=== PATIENT | male | born 1970 | race Caucasian/White ===

== ENCOUNTER 2022-10-17 17:47 | Inpatient (IN) | payer BC, SELFPAY ==
[2022-10-17] VITALS (32 sets, daily range): BP systolic 113–166; BP diastolic 70–144; PULSE 91–125; RESP 15–33; TEMP 36.2; O2SAT 87–99
--- NOTE | 2022-10-17 17:45 | RT.EKG_ITS ---
APPROVED REPORT Exam: Resting ECG Reason for Exam: seizure Patient Location: E HR:103 bpm ECG Measurements Heart Rate 103 AXIS [place] 182 P 66 QRSd 86 QRS 28 QT 394 T 72 QTc 516 Conclusion Sinus tachycardia...rate> 99 Prolonged QT interval...QTc >500mS No ST segment or T wave abnormalities to suggest occlusive [place]
--- NOTE | 2022-10-17 18:00 | RT.EKG_ITS ---
APPROVED REPORT Exam: Resting ECG Reason for Exam: seizure Patient Location: E HR:110 bpm ECG Measurements Heart Rate 110 AXIS [place] 117 P 11 QRSd 88 QRS 31 QT 437 T -88 QTc 592 Conclusion Sinus tachycardia...rate> [address] segment or T wave abnormalities to suggest occlusive [place] Prolonged QT interval...QTc >500mS
--- NOTE | 2022-10-17 18:00 | DI.CT_ITS ---
Exam(s) CT HEAD WO EXAM: CT HEAD WO CLINICAL HISTORY: Seizure, headache. TECHNIQUE: Imaging Protocol: Axial computed tomography images with coronal and sagittal reformatted images were created and reviewed COMPARISON: No exams were available for comparison FINDINGS: Exam limited by motion. Ventricles and Extra axial spaces: Normal in size and morphology for the patient's age. Hemorrhage: None. Cerebral parenchyma: No evidence of acute infarct or mass. Midline shift: None. Brainstem/Cerebellum: Normal. Calvarium: Normal. Visualized Paranasal sinuses/Mastoids: mucosal thickening right maxillary sinus. Soft Tissues: Unremarkable. IMPRESSION: Exam limited by motion. No acute intracranial process. RADIATION DOSE DELIVERED: 760.35mGy.cm Total DLP DATA REPOSITORY: All CT scans at this facility are submitted to the National Radiology Data Registry (NRDR) Dose Index Registry (DIR) with the [employer] ([employer]). RADIATION OPTIMIZATION: All CT scans at this facility use at least one of these dose optimization te chniques: automated exposure control; mA and/or kV adjustment per patient size (includes targeted exa ms where dose is matched to clinical indication); or iterative reconstruction.
[2022-10-17] MEDS: Normal Saline 1,000 ML 1000 ML IV ×2 (18:14→21:36)
[2022-10-17] MEDS: LORazepam 2 MG/ML VIAL 1 MG IVP (18:14)
[2022-10-17 18:28] LABS: Absolute Eosinophil Count 0.01 10^3/uL (0.0-0.7); Absolute Monocyte Count 1.65 10^3/uL (0.1-0.8); Basophils % 0.4; Eosinophils % 0.1; HCT 51.5 % (40.0-50.0); HGB 18.1 g/dL (13.5-17.5); Immature Grans % 0.7; Lymphocytes % 6.7; MCH 32.6 pg (27.0-33.0); MCHC 35.1 % (32.0-36.0); MCV 93 fL (80-95); MPV 11.4 fL (8.0-11.0); Monocytes % 12.3; Neutrophils % 79.8; Platelet Count 176 10^3/uL (130-400); RBC 5.56 10^6/uL (4.36-5.78); RDW 11.1 % (11.8-14.1); WBC 13.43 10^3/uL (4.4-10.8)
[2022-10-17] MEDS: diazePAM 10 MG/2 ML SYR 5 MG IVP ×2 (18:31→22:00)
[2022-10-17 18:43] LABS: Absolute Basophil Count 0.05 10^3/uL (0.0-0.2); Absolute Neutrophil Count 10.72 10^3/uL (1.2-6.7)
[2022-10-17 18:45] LABS: Acetaminophen < 2 ug/mL (10-30); Salicylate < 2.8 mg/dL (<2.8)
[2022-10-17 18:48] LABS: ALT 70 U/L (16-63); AST 91 U/L (15-37); Albumin 4.6 g/dL (3.4-5.0); Alkaline Phosphatase 86 U/L (46-116); Anion Gap 18.3 mmol/L (3-11); BUN 44 mg/dL (7-18); Bilirubin, Total 2.6 mg/dL (0.2-1.0); CO2 33.7 mmol/L (21.0-32.0); CREATININE 2.9 mg/dL (0.70-1.30); Chloride 80 mmol/L (98-107); Estimated GFR 25.71 (mL/min/1.73m2); Glucose 144 mg/dL (74-106); Lipase 33 U/L (16-77); Magnesium 1.4 mg/dL (1.8-2.4); Sodium 132 mmol/L (136-145); Total Protein 9.3 g/dL (6.4-8.2)
[2022-10-17 18:49] LABS: ETHANOL BLOOD < 3.0 mg/dL (<10)
[2022-10-17 18:50] LABS: Calcium 15.5 mg/dL (8.5-10.1)
[2022-10-17 18:50] LABS: Ammonia 39 umol/L (11-32)
[2022-10-17 18:51] LABS: Potassium 2.3 mmol/L (3.5-5.1)
[2022-10-17] MEDS: Potassium Chloride 20 MEQ TABCR 40 MEQ PO (19:03)
[2022-10-17] MEDS: Magnesium Oxide 400 MG TAB PO (19:03)
[2022-10-17] MEDS: POTASSIUM CHLORIDE 20 MEQ/100 ML BAG 50 MEQ IVPB (19:03)
[2022-10-17 19:05] LABS: Diff Comment Diff Reviewed
[2022-10-17 19:06] LABS: RBC Morphology Normal
--- NOTE | 2022-10-17 20:28 | DI.VRAD_ITS ---
PROCEDURE INFORMATION: Exam: CT Head Without Contrast Exam date and time: 10/17/2022 8:08 PM Age: 51 years old Clinical indication: Other: Seizure, headache TECHNIQUE: Imaging protocol: Computed tomography of the head without contrast. Radiation optimization: All CT scans at this facility use at least one of these dose optimization techniques: automated exposure control; mA and/or kV adjustment per patient size (includes targeted exams where dose is matched to clinical indication); or iterative reconstruction. COMPARISON: No relevant prior studies available. FINDINGS: Brain: Cortical volume loss noted. No hemorrhage. Unremarkable white matter. No mass effect. Cerebral ventricles: No ventriculomegaly. Paranasal sinuses: Mild mucoperiosteal thickening right maxillary sinus. Mastoid air cells: Visualized mastoid air cells are well aerated. Bones/joints: Unremarkable. No acute fracture. Soft tissues: Unremarkable. Other findings: Motion slightly limits the exam. IMPRESSION: Slightly limited due to motion. No definite evidence for acute intracranial abnormality. Dictated and Authenticated by: Megan Amato MD. Ordering:SIAI Downs MD
[2022-10-17 20:37] LABS: *AMPHETAMINES SCREEN URINE Negative (Negative); *BARBITURATES SCREEN URINE Negative (Negative); *BENZODIAZEPINES SCREEN URINE Negative (Negative); Cannabinoids THC Negative (Negative); Cocaine Screen,Urine Negative (Negative); METHADONE URINE SCREEN Negative (Negative); OPIATES URINE SCREEN Negative (Negative)
[2022-10-17 20:38] LABS: Tricyclic Antidepressants Negative (Negative)
--- NOTE | 2022-10-17 20:57 | W.ED.GENAD ---
Discharge Plan Disposition Patient Disposition: Admit to [facility] Discharge Details Clinical Impression: Alcohol withdrawal seizure, Acute hypokalemia, Hypercalcemia, Hypomagnesemia, Acute dehydration, VITALIY (acute kidney injury) Admit Date/Time: 10/17/22 23:28 Admit Provider: Raffy Talavera Attending Provider: Raffy Talavera Primary Care Provider: Karen,Local ED Provider: Himanshu Davies Discharge Data Discharge Date/Time-TO BE ENTERED AT DEPARTURE: 10/18/22 01:12 Medical Decision Making Patient presenting to the emergency department for generalized not feeling well, lightheadedness, headache and vomiting since Wednesday. While presenting to the emergency department patient had what appeared to be seizure-like activity. Further discussion revealed that patient is a heavy drinker but given symptoms has not been drinking normal amounts since Wednesday and when attempting to drink this morning he vomited up the alcohol. Patient states he is not on any medication, has been using some Tums for indigestion and has no other past medical history. Patient does not remember having withdrawal seizures from alcohol before but significant other states that she does believe he did have this in the past. Of note by the time I had seen the patient verbal orders were given for 1 mg of Ativan to be given and patient was no longer seizing. Physical exam does show bilateral significant tremors of the upper extremities, patient appears slightly anxious. Noted tachycardia otherwise nondiagnostic exam with no focal neurological findings beyond tremors. We will plan on checking labs CT imaging of head and will give the fluids, will monitor with CIWA, and will aggressively continue with benzos. Please see physician interpretation for full interpretation of EKG but upon my review patient is in sinus tachycardia, no acute ischemic findings to suggest STEMI but of significant note was patient has prolonged QTc of 592. Review of patient's labs show elevated WBC, hemoglobin of 18, neutrophils and monocytes high with low lymphocytes. CBC shows significant and multiple electrolyte abnormalities including hypokalemia, hyponatremia, significant anion gap of 18, elevated BUN and creatinine with a GFR of 25, hypercalcemia with 15.5, hyper magnesium elevated AST ALT. Patient does have ammonia of 39 and lipase is within normal range of 33. Urinalysis showed significant concentration did show positive for nitrites but only 0-2 WBCs and rare bacteria so reflexive culture was ordered but I suspect some of these findings could be more from dehydration. May be beneficial to repeat urinalysis after patient is more appropriately hydrated. Alcohol was nondetected and negative UDS otherwise. CT imaging of head did not reveal any acute findings. Patient was given another liter of fluids, p.o. and IV potassium, p.o. magnesium, a total of 10 mg of diazepam and discussed with patient about admission which she was agreeable to. Hospitalist was contacted and agreed to have patient admitted. Patient remained in stable condition and benzos were able to control symptoms of withdrawal. This documentation was generated using [employer] dictation system, please disregard any oddities of phrase or misspellings. Imaging Data Radiologic Study: Imaging: CT Scan Radiologist's impression: Exam(s) PROCEDURE INFORMATION: Exam: CT Head Without Contrast Exam date and time: 10/17/2022 8:08 PM Age: 51 years old Clinical indication: Other: Seizure, headache TECHNIQUE: Imaging protocol: Computed tomography of the head without contrast. Radiation optimization: All CT scans at this facility use at least one of these dose optimization techniques: automated exposure control; mA and/or kV adjustment per patient size (includes targeted exams where dose is matched to clinical indication); or iterative reconstruction. COMPARISON: No relevant prior studies available. FINDINGS: Brain: Cortical volume loss noted. No hemorrhage. Unremarkable white matter. No mass effect. Cerebral ventricles: No ventriculomegaly. Paranasal sinuses: Mild mucoperiosteal thickening right maxillary sinus. Mastoid air cells: Visualized mastoid air cells are well aerated. Bones/joints: Unremarkable. No acute fracture. Soft tissues: Unremarkable. Other findings: Motion slightly limits the exam. IMPRESSION: Slightly limited due to motion. No definite evidence for acute intracranial abnormality. Lab Data Lab results reviewed: Yes I reviewed the patient's lab results. HPI General Mode of arrival: wheelchair. Date/Time Provider Initiated Documentation: 10/17/22 17:52. Limitations to Documentation: no limitations. Information obtained by: patient, family and RN notes reviewed. History of Present Illness 51 year old M presents to the emergency department with the chief complaint of Dizziness, headache, vomiting, described as moderate, Patient started experiencing this day(s) (4) and it has been constant. No relieving factors improve symptom(s), No exacerbating factors reported . Patient did receive the following treatments prior to arrival, none Related Data Home Medications Medication Instructions Recorded Confirmed lorazepam 1 mg tablet 1 mg PO TID PRN #20 tabs 10/19/22 ondansetron 4 mg disintegrating 4 mg PO Q6H PRN #20 tabs 10/19/22 tablet Previous Rx's Medication Instructions Recorded lorazepam 1 mg tablet 1 mg PO TID PRN #20 tabs 10/19/22 ondansetron 4 mg disintegrating 4 mg PO Q6H PRN #20 tabs 10/19/22 tablet General Stated Complaint: Seizure ADA: 2 Review of Systems Constitutional Constitutional: Denies chills, Denies fever(s), Reports headache(s) and Reports malaise Eyes Eyes: Denies change in vision ENT Ears, Nose, Mouth, and Throat: Reports headache(s) Cardiovascular Cardiovascular: Denies chest pain and Denies dyspnea Respiratory Respiratory: Denies cough and Denies dyspnea Gastrointestinal Gastrointestinal: Denies abdominal pain, Denies diarrhea, Reports nausea and Reports vomiting Genitourinary Genitourinary: Denies oliguria and Denies difficulty urinating Musculoskeletal Musculoskeletal: Denies muscle cramps, Reports muscle weakness, Denies numbness and Denies tingling Integumentary/Breasts Skin/Breast: Denies rash Neurologic Neurologic: Reports headache(s), Denies numbness, Reports convulsions and Denies tingling PFSH All Active Problems (Updated 10/18/22 @ 18:26 by Marjan Driver NP) Prolonged QT interval (Acute) Alcohol withdrawal (Acute) Alcohol withdrawal seizure (Acute) Acute hypokalemia (Acute) Acute dehydration (Acute) VITALIY (acute kidney injury) (Acute) Hypertension (Chronic) Social History Smoking/Tobacco Use Status: Never Smoking risk assessment performed?: Yes Alcohol Intake: current Alcohol Intake frequency: 3 or more drinks per day Drug use: Never Substance use type: does not use Housing: house Exam Const General: cooperative Orientation: alert, awake and oriented x3 HENMT Head: normal to inspection Ears: hearing grossly normal bilaterally Mouth: oral mucosae normal and moist mucous membranes Throat: posterior oropharynx normal Eyes Visual Waggoner: normal visual waggoner by confrontation Alignment and Position: alignment normal Periorbital: periorbital findings normal Eyelids: eyelids normal Sclera: sclerae normal Cornea: corneas normal Pupils: PERRL EOM: EOM intact bilaterally Neck Neck: normal visual inspection, full ROM and no meningeal signs Resp Effort & Inspection: normal respiratory effort and able to speak in complete sentences Auscultation: clear to auscultation bilaterally Cardio Rate: regular rate Rhythm: regular rhythm Heart Sounds: S1 normal and S2 normal GI Palpation: soft, not firm, no guarding, no masses, no pulsatile masses, not rigid and nontender Auscultation: normal bowel sounds Neuro General: patient alert, patient awake, patient oriented x3, gait normal and moves all extremities Cognition: normal cognition Speech: speech normal Motor: muscle tone normal throughout, strength 5/5 throughout, no pronator drift, no movement abnormalities noted and tremor bilateral upper extremity resting tremor Sensory Exam: no sensory deficits noted Course Vital Signs Vital signs: Vital Signs Temperature 36.2 C L 10/17/22 17:50 Pulse 115 H 10/17/22 17:50 Respiratory Rate 20 10/17/22 17:50 Blood Pressure 150/90 H 10/17/22 17:50 Pulse Oximetry 99 10/17/22 17:50 Temperature 36.2 C L 10/17/22 17:50 Pulse 109 H 10/17/22 20:00 Pulse 109 H 10/17/22 20:00 Respiratory Rate 22 10/17/22 20:00 Respiratory Effort Normal 10/17/22 18:05 Respiratory Depth Normal 10/17/22 18:05 Respiratory Pattern Normal 10/17/22 18:06 Blood Pressure 113/70 10/17/22 20:00 Blood Pressure Mean 81 10/17/22 20:00 Blood Pressure Position Sitting 10/17/22 17:50 Pulse Oximetry 94 10/17/22 19:50 Oxygen Delivery Method Room Air 10/17/22 17:50 Oxygen Flow Rate 0 10/17/22 17:50 Lab/Test Results Lab/Test Results: Laboratory Tests Range/Units 10/17/22 10/17/22 10/17/22 17:55 17:55 17:55 WBC (4.4-10.8) 10^3/uL 13.43 H RBC (4.36-5.78) 10^6/uL 5.56 Hgb (13.5-17.5) g/dL 18.1 H Hct (40.0-50.0) % 51.5 H MCV (80-95) fL 93 MCH (27.0-33.0) pg 32.6 MCHC (32.0-36.0) % 35.1 RDW (11.8-14.1) % 11.1 L Plt Count (130-400) 10^3/uL 176 MPV (8.0-11.0) fL 11.4 H Immature Gran % 0.7 Neutrophils % 79.8 Lymphocytes % 6.7 Monocytes % 12.3 Eosinophils % 0.1 Basophils % 0.4 Nucleated RBC % (0.0-0.3) % 0.0 Absolute Neutrophils (1.2-6.7) 10^3/uL 10.72 H Absolute Lymphocytes (1.2-3.4) 10^3/uL 0.90 L Absolute Monocytes (0.1-0.8) 10^3/uL 1.65 H Absolute Eosinophils (0.0-0.7) 10^3/uL 0.01 Absolute Basophils (0.0-0.2) 10^3/uL 0.05 RBC Morphology Normal Sodium (136-145) mmol/L 132 L Potassium (3.5-5.1) mmol/L 2.3 L* Chloride (98-107) mmol/L 80 L Carbon Dioxide (21.0-32.0) mmol/L 33.7 H Anion Gap (3-11) mmol/L 18.3 H BUN (7-18) mg/dL 44 H Creatinine (0.70-1.30) mg/dL 2.9 H Est GFR (CKD-EPI 2020) (mL/min/1.73m2) 25.71 Glucose (74-106) mg/dL 144 H Calcium (8.5-10.1) mg/dL 15.5 H* Magnesium (1.8-2.4) mg/dL 1.4 L Total Bilirubin (0.2-1.0) mg/dL 2.6 H AST (15-37) U/L 91 H ALT (16-63) U/L 70 H Alkaline Phosphatase (46-116) U/L 86 Ammonia (11-32) umol/L Total Protein (6.4-8.2) g/dL 9.3 H Albumin (3.4-5.0) g/dL 4.6 Lipase (16-77) U/L 33 Salicylates (<2.8) mg/dL < 2.8 Urine Opiates Screen (Negative) Urine Methadone Screen (Negative) Acetaminophen (10-30) ug/mL < 2 Ur Barbiturates Screen (Negative) Ur Tricyclics Screen (Negative) Ur Amphetamines Screen (Negative) U Benzodiazepines Scrn (Negative) Urine Cocaine Screen (Negative) Ur THC Screen (Negative) Ethyl Alcohol (<10) mg/dL < 3.0 Range/Units 10/17/22 10/17/22 18:20 19:57 WBC (4.4-10.8) 10^3/uL RBC (4.36-5.78) 10^6/uL Hgb (13.5-17.5) g/dL Hct (40.0-50.0) % MCV (80-95) fL MCH (27.0-33.0) pg MCHC (32.0-36.0) % RDW (11.8-14.1) % Plt Count (130-400) 10^3/uL MPV (8.0-11.0) fL Immature Gran % Neutrophils % Lymphocytes % Monocytes % Eosinophils % Basophils % Nucleated RBC % (0.0-0.3) % Absolute Neutrophils (1.2-6.7) 10^3/uL Absolute Lymphocytes (1.2-3.4) 10^3/uL Absolute Monocytes (0.1-0.8) 10^3/uL Absolute Eosinophils (0.0-0.7) 10^3/uL Absolute Basophils (0.0-0.2) 10^3/uL RBC Morphology Sodium (136-145) mmol/L Potassium (3.5-5.1) mmol/L Chloride (98-107) mmol/L Carbon Dioxide (21.0-32.0) mmol/L Anion Gap (3-11) mmol/L BUN (7-18) mg/dL Creatinine (0.70-1.30) mg/dL Est GFR (CKD-EPI 2020) (mL/min/1.73m2) Glucose (74-106) mg/dL Calcium (8.5-10.1) mg/dL Magnesium (1.8-2.4) mg/dL Total Bilirubin (0.2-1.0) mg/dL AST (15-37) U/L ALT (16-63) U/L Alkaline Phosphatase (46-116) U/L Ammonia (11-32) umol/L 39 H Total Protein (6.4-8.2) g/dL Albumin (3.4-5.0) g/dL Lipase (16-77) U/L Salicylates (<2.8) mg/dL Urine Opiates Screen (Negative) Negative Urine Methadone Screen (Negative) Negative Acetaminophen (10-30) ug/mL Ur Barbiturates Screen (Negative) Negative Ur Tricyclics Screen (Negative) Negative Ur Amphetamines Screen (Negative) Negative U Benzodiazepines Scrn (Negative) Negative Urine Cocaine Screen (Negative) Negative Ur THC Screen (Negative) Negative Ethyl Alcohol (<10) mg/dL PAWSS Have you Been Recently Intoxicated or Drunk Within the Last 30 days?: Yes Have you Ever Experienced Previous Episodes of Alcohol Withdrawal?: Yes Have you ever Experienced Withdrawal Seizures?: Unable to Obtain Have you ever Experienced Delirium Tremens(DT)s?: Yes Have you ever undergone Alcohol Rehabilitation Treatment (i.e, inpt ot outpatient treatment programs)?: No Have you ever Experienced Blackouts?: No Have you ever Combined Alcohol with other Downers within the last 90 days?: No Have you ever Combined Alcohol with any other Substance of Abuse during the last 90 days?: No Positive Blood Alcohol level on Presentation? [PCS.BAL]: No Evidence of Increased Autonomic Activity (i.e. HR>120, tremor, sweating, agitation, nausea)?: Yes Result: 4
[2022-10-17 21:11] LABS: Bilirubin Small (Negative); Blood Trace-intact (Negative); Clarity Clear (Clear); Glucose Negative (Negative); Ketones Trace mg/dL (Negative); Leukocyte Esterase Negative (Negative); Nitrite Positive (Negative); Specific Gravity >= 1.030 (1.005-1.025); Urobilinogen 0.2 mg/dL (Up to 0.2)
[2022-10-17 21:52] LABS: Lactate 1.4 mmol/L (0.6-1.4)
[2022-10-17 22:10] LABS: Bacteria Rare HPF (Negative); C & S Indicated? Yes; Crystals Negative HPF (Negative); Epithelial Cells Rare HPF (Negative); Mucus Moderate (Negative); RBC 0-2 HPF (0-2); WBC 0-2 HPF (0-5)
[2022-10-17 22:11] LABS: ALT 49 U/L (16-63); AST 61 U/L (15-37); Albumin 3.3 g/dL (3.4-5.0); Alkaline Phosphatase 62 U/L (46-116); Anion Gap 2.6 mmol/L (3-11); BUN 42 mg/dL (7-18); Bilirubin, Total 1.5 mg/dL (0.2-1.0); CO2 40.4 mmol/L (21.0-32.0); CREATININE 1.8 mg/dL (0.70-1.30); Chloride 90 mmol/L (98-107); Estimated GFR 45.57 (mL/min/1.73m2); Glucose 111 mg/dL (74-106); Potassium 3.3 mmol/L (3.5-5.1); Sodium 133 mmol/L (136-145); Total Protein 6.7 g/dL (6.4-8.2)
[2022-10-17 22:23] LABS: Calcium 12.1 mg/dL (8.5-10.1)
[2022-10-17] MEDS: Famotidine 20 MG TAB 40 MG PO (22:28)
[2022-10-17] MEDS: Normal Saline 250 ML IV (22:42)
--- NOTE | 2022-10-17 23:31 | HPE_ITS ---
Date of service: 10/17/22 Time of Service: 23:31 Assessment and Plan Assessment and plan (1) Alcohol withdrawal: Status: Acute Assessment and plan: Unclear if he truly had a generalized seizure although is clearly at risk for same. Given high risk for complicated alcohol withdrawal, will evaluate hourly and continue with long-acting benzodiazepines. Goal is light sedation but still arousable. Currently no indication for antiseizure drugs and will avoid antipsychotics given potential to lower seizure threshold. Continue supportive care including IV fluids and thiamine supplementation. Likely has significant alcohol induced gastritis and will start PPI and antiemetics. No evidence of active bleeding. (2) Acute hypokalemia: Status: Acute Assessment and plan: Continue IV and oral replacement. Monitor on telemetry. (3) Hypercalcemia: Status: Acute Assessment and plan: Likely related to profound volume depletion but will evaluate for underlying metabolic disorder if fails to correct with fluids. (4) Hypomagnesemia: Status: Acute Assessment and plan: Continue IV and oral replacement. (5) VITALIY (acute kidney injury): Status: Acute Assessment and plan: Already improving with IV fluids. Urine output remains good. Significant metabolic alkalosis noted without increased anion gap, likely related to volume contraction. Trend electrolytes and VBG. (6) Prolonged QT interval: Status: Acute Assessment and plan: Likely due to electrolyte disturbances. Will correct and monitor on telemetry. History of Present Illness History of Present Illness Chief Complaint: Shaky Narrative: This 51-year-old male drove up to [place] from [place] with his family earlier today. He states that he was not feeling well while driving and upon exiting the car on arrival felt very shaky and unsteady and presented to the emergency department. At that point he had a witnessed episode of generalized shaking but without loss of consciousness, incontinence, postictal state, soreness, or oral trauma. No history of seizures. Drinks several alcoholic beverages most days but has cut back significantly over the past 3 days with minimal intake over the past 48 hours. Last heavier alcohol intake was 3 days ago. Has had difficulty with oral intake because of constant nausea and dry heaving and although he reports occasional small-volume black emesis, he denies hematemesis, melena, hematochezia. No abdominal pain noted. Has been increasingly thirsty and trying to force oral fluids despite knowing that it will result in vomiting. No NSAID or acid suppressant use. No history of liver disease. No head injury. Review of Systems All systems reviewed & are unremarkable except as noted in HPI and below PFSH All Active Problems (Updated 10/17/22 @ 23:40 by Lebron Pizano MD) Prolonged QT interval (Acute) Alcohol withdrawal (Acute) Alcohol withdrawal seizure (Acute) Acute hypokalemia (Acute) Hypercalcemia (Acute) Hypomagnesemia (Acute) Acute dehydration (Acute) VITALIY (acute kidney injury) (Acute) Hypertension (Chronic) Social History Smoking/Tobacco Use Status: Never Smoking risk assessment performed?: Yes Alcohol Intake: current Alcohol Intake frequency: 3 or more drinks per day Drug use: Never Substance use type: does not use Exam Narrative Exam Narrative: In general he appears slightly anxious but otherwise no acute distress HEENT significant facial erythema noted, pupils equal round and reactive to light, no conjunctival pallor or scleral icterus, oral mucosa moist with no evidence of trauma Neck supple, no lymphadenopathy or thyromegaly, carotid pulses normal and symmetric CV regular, no murmur, no gallop, no JVD Lungs clear Abdomen soft, nontender, bowel sounds normal with no masses or organomegaly Extremities no peripheral edema, distal pulses normal and symmetric Skin normal turgor Joints no active inflammatory changes Neurologic resting tremor noted, no strength or sensory deficits Results Imaging Additional studies: Reviewed head CT which shows no acute pathology, labs with hypokalemia and hypomagnesemia as well as improving acute kidney injury. Reviewed EKG which is unremarkable except for prolonged QTc. Labs 10/17/22 17:55 10/17/22 21:49 Labs: Laboratory Results - last 24 hr 10/17/22 10/17/22 10/17/22 17:55 17:55 17:55 WBC 13.43 H RBC 5.56 Hgb 18.1 H Hct 51.5 H MCV 93 MCH 32.6 MCHC 35.1 RDW 11.1 L Plt Count 176 MPV 11.4 H Immature Gran % 0.7 Neutrophils % 79.8 Lymphocytes % 6.7 Monocytes % 12.3 Eosinophils % 0.1 Basophils % 0.4 Nucleated RBC % 0.0 Absolute Neutrophils 10.72 H Absolute Lymphocytes 0.90 L Absolute Monocytes 1.65 H Absolute Eosinophils 0.01 Absolute Basophils 0.05 RBC Morphology Normal VBG Lactate Sodium 132 L Potassium 2.3 L* Chloride 80 L Carbon Dioxide 33.7 H Anion Gap 18.3 H BUN 44 H Creatinine 2.9 H Est GFR (CKD-EPI 2020) 25.71 Glucose 144 H Calcium 15.5 H* Magnesium 1.4 L Total Bilirubin 2.6 H AST 91 H ALT 70 H Alkaline Phosphatase 86 Ammonia Total Protein 9.3 H Albumin 4.6 Lipase 33 Urine Color Urine Clarity Urine pH Ur Specific [place] Urine Protein Urine Ketones Urine Blood Urine Nitrite Urine Bilirubin Urine Urobilinogen Ur Leukocyte Esterase Urine RBC Urine WBC Ur Epithelial Cells Urine Crystals Urine Bacteria Urine Mucus Ur Culture Indicated? Urine Glucose Salicylates < 2.8 Urine Opiates Screen Urine Methadone Screen Acetaminophen < 2 Ur Barbiturates Screen Ur Tricyclics Screen Ur Amphetamines Screen U Benzodiazepines Scrn Urine Cocaine Screen Ur THC Screen Ethyl Alcohol < 3.0 10/17/22 10/17/22 10/17/22 18:20 19:57 19:57 WBC RBC Hgb Hct MCV MCH MCHC RDW Plt Count MPV Immature Gran % Neutrophils % Lymphocytes % Monocytes % Eosinophils % Basophils % Nucleated RBC % Absolute Neutrophils Absolute Lymphocytes Absolute Monocytes Absolute Eosinophils Absolute Basophils RBC Morphology VBG Lactate Sodium Potassium Chloride Carbon Dioxide Anion Gap BUN Creatinine Est GFR (CKD-EPI 2020) Glucose Calcium Magnesium Total Bilirubin AST ALT Alkaline Phosphatase Ammonia 39 H Total Protein Albumin Lipase Urine Color [place] Urine Clarity Clear Urine pH 5.0 Ur Specific [place] >= 1.030 H Urine Protein 100 H Urine Ketones Trace H Urine Blood Trace-intact H Urine Nitrite Positive H Urine Bilirubin Small H Urine Urobilinogen 0.2 Ur Leukocyte Esterase Negative Urine RBC 0-2 Urine WBC 0-2 Ur Epithelial Cells Rare Urine Crystals Negative Urine Bacteria Rare Urine Mucus Moderate Ur Culture Indicated? Yes Urine Glucose Negative Salicylates Urine Opiates Screen Negative Urine Methadone Screen Negative Acetaminophen Ur Barbiturates Screen Negative Ur Tricyclics Screen Negative Ur Amphetamines Screen Negative U Benzodiazepines Scrn Negative Urine Cocaine Screen Negative Ur THC Screen Negative Ethyl Alcohol 10/17/22 10/17/22 21:49 21:49 WBC RBC Hgb Hct MCV MCH MCHC RDW Plt Count MPV Immature Gran % Neutrophils % Lymphocytes % Monocytes % Eosinophils % Basophils % Nucleated RBC % Absolute Neutrophils Absolute Lymphocytes Absolute Monocytes Absolute Eosinophils Absolute Basophils RBC Morphology VBG Lactate 1.4 Sodium 133 L Potassium 3.3 L D Chloride 90 L Carbon Dioxide 40.4 H Anion Gap 2.6 L BUN 42 H Creatinine 1.8 H D Est GFR (CKD-EPI 2020) 45.57 Glucose 111 H Calcium 12.1 H* D Magnesium Total Bilirubin 1.5 H AST 61 H ALT 49 Alkaline Phosphatase 62 Ammonia Total Protein 6.7 Albumin 3.3 L Lipase Urine Color Urine Clarity Urine pH Ur Specific [place] Urine Protein Urine Ketones Urine Blood Urine Nitrite Urine Bilirubin Urine Urobilinogen Ur Leukocyte Esterase Urine RBC Urine WBC Ur Epithelial Cells Urine Crystals Urine Bacteria Urine Mucus Ur Culture Indicated? Urine Glucose Salicylates Urine Opiates Screen Urine Methadone Screen Acetaminophen Ur Barbiturates Screen Ur Tricyclics Screen Ur Amphetamines Screen U Benzodiazepines Scrn Urine Cocaine Screen Ur THC Screen Ethyl Alcohol Last Vital Signs Temp 36.2 C L 10/17/22 17:50 Pulse 109 H 10/17/22 20:00 Resp 23 10/17/22 21:30 BP 113/70 10/17/22 20:00 Pulse Ox 96 10/17/22 21:30 PAWSS Have you Been Recently Intoxicated or Drunk Within the Last 30 days?: Yes Have you Ever Experienced Previous Episodes of Alcohol Withdrawal?: Yes Have you ever Experienced Withdrawal Seizures?: Unable to Obtain Have you ever Experienced Delirium Tremens(DT)s?: Yes Have you ever undergone Alcohol Rehabilitation Treatment (i.e, inpt ot outpatient treatment programs)?: No Have you ever Experienced Blackouts?: No Have you ever Combined Alcohol with other Downers within the last 90 days?: No Have you ever Combined Alcohol with any other Substance of Abuse during the last 90 days?: No Positive Blood Alcohol level on Presentation? [PCS.BAL]: No Evidence of Increased Autonomic Activity (i.e. HR>120, tremor, sweating, agitation, nausea)?: Yes Result: 4 Time Spent Time spent with Patient: 55-74 minutes Time was spent: preparing to see the patient(eg.review tests), obtaining and/or reviewing separately otained hiistory, ordering medications,tests, procedures, referring, communicating with other health critical care educator, indepentently interpreting results, counseling the patient and care coordination
[2022-10-17 23:57] LABS: Casts 10-20 Hyaline LPF (Negative)
[2022-10-18] VITALS (18 sets, daily range): BP systolic 112–135; BP diastolic 72–87; PULSE 56–100; RESP 16–23; TEMP 36–37.1; O2SAT 94–99
[2022-10-18] MEDS: POTASSIUM CHLORIDE/D5-0.9%NACL 1,000 ML 100 MEQ IV (01:36)
[2022-10-18] MEDS: diazePAM 5 MG TAB 10 MG PO (01:46)
[2022-10-18] MEDS: Enoxaparin 40 MG/0.4 ML SYR SC (01:47)
[2022-10-18] MEDS: MAGNESIUM SULFATE 4 GM/100 ML BAG IVPB (02:36)
[2022-10-18] MEDS: Normal Saline Flush 10 ML SYR IVP ×2 (05:13→10:16)
[2022-10-18] MEDS: Thiamine 100 MG TAB PO (08:24)
[2022-10-18] MEDS: Pantoprazole 40 MG TABCR PO ×2 (08:24→20:48)
[2022-10-18] MEDS: Magnesium Oxide 400 MG TAB PO (08:25)
[2022-10-18 08:41] LABS: BE (Venous) 18 mmol/L (-2-3); HCO3 (Venous) 41 mmol/L (23-28); O2 Sat (Venous) 51 %; TCO2 (Venous) 37 mmol/L (24-29); pCO2 (Venous) 53 mmHg (41-51); pO2 (Venous) 29 mmHg
[2022-10-18 08:45] LABS: Abs Immature Grans 0.05 10^3/uL (0.0-0.06); Absolute Basophil Count 0.02 10^3/uL (0.0-0.2); Absolute Eosinophil Count 0.02 10^3/uL (0.0-0.7); Absolute Lymphocyte Count 1.27 10^3/uL (1.2-3.4); Absolute Monocyte Count 1.09 10^3/uL (0.1-0.8); Absolute Neutrophil Count 6.52 10^3/uL (1.2-6.7); Basophils % 0.2; Eosinophils % 0.2; HCT 38.2 % (40.0-50.0); HGB 13.1 g/dL (13.5-17.5); Immature Grans % 0.6; Lymphocytes % 14.2; MCH 32.3 pg (27.0-33.0); MCHC 34.3 % (32.0-36.0); MCV 94 fL (80-95); MPV 11.2 fL (8.0-11.0); Monocytes % 12.2; Neutrophils % 72.6; Platelet Count 114 10^3/uL (130-400); RBC 4.06 10^6/uL (4.36-5.78); RDW 11.3 % (11.8-14.1); RDW-SD 38.7 fL; WBC 8.97 10^3/uL (4.4-10.8)
[2022-10-18] MEDS: LORazepam 0.5 MG TAB 1 MG PO ×2 (08:45→12:24)
[2022-10-18 08:57] LABS: Prothrombin Time 10.1 sec (9.3-11.0)
[2022-10-18 08:58] LABS: Anion Gap 1.6 mmol/L (3-11); BUN 43 mg/dL (7-18); CO2 39.4 mmol/L (21.0-32.0); CREATININE 1.4 mg/dL (0.70-1.30); Calcium 10.9 mg/dL (8.5-10.1); Chloride 91 mmol/L (98-107); Estimated GFR 61.61 (mL/min/1.73m2); Glucose 88 mg/dL (74-106); Magnesium 2.3 mg/dL (1.8-2.4); PHOSPHORUS 2.6 mg/dL (2.6-4.7); Sodium 132 mmol/L (136-145)
[2022-10-18 09:03] LABS: Potassium 2.5 mmol/L (3.5-5.1)
[2022-10-18] MEDS: POTASSIUM CHLORIDE 20 MEQ/100 ML BAG 50 MEQ IVPB ×4 (09:29→20:49)
[2022-10-18] MEDS: Lactated Ringers 1,000 ML 125 ML IV (10:15)
[2022-10-18] MEDS: Potassium Chloride 20 MEQ TABCR 40 MEQ PO (11:33)
[2022-10-18] MEDS: Normal Saline 1,000 ML 125 ML IV (11:48)
[2022-10-18] MEDS: LORazepam 2 MG/ML VIAL 1 MG IVP (14:07)
--- NOTE | 2022-10-18 15:09 | INITIAL_ITS ---
Date of service: 10/18/22 Time of Service: 15:09 Care Management Initial Assmt Initial Assessment REASON FOR HOSPITALIZATION:: ETOH withdrawal, hypokalemia PREVIOUS FUNCTIONAL STATUS/SOCIAL/FAMILY SUPPORTS:: Independent at baseline, drove up to [place] from [place] yesterday-was not feeling well, ongoing nausea and vomiting. CURRENT FUNCTIONAL STATUS:: Active withdrawal; on CIWA protocol being medicated consistently at this time. ADVANCE DIRECTIVES:: None on file. Has patient been provided with info about the portal/API?: No Did the patient sign up for the portal?: No CODE STATUS:: Full Code INSURANCE COVERAGE / FINANCIAL ISSUES:: BC/BS Other ([place]) CURRENT HOME/COMMUNITY SERVICES/EQUIPMENT:: None, currently. PRIMARY CARE PHYSICIAN:: No local. PATIENT/FAMILY EDUCATION NEEDS:: Review discharge instructions, discuss Ask Me Three. ANTICIPATED BARRIERS TO DISCHARGE:: ETOH withdrawal. TRANSPORTATION:: Via private vehicle with family. PLAN:: Artur will discharge to return to his home in [place] and follow up with his own local providers once medically cleared and through withdrawal. CM continues to follow. PFSH All Active Problems (Updated 10/17/22 @ 23:40 by Lebron Pizano MD) Prolonged QT interval (Acute) Alcohol withdrawal (Acute) Alcohol withdrawal seizure (Acute) Acute hypokalemia (Acute) Hypercalcemia (Acute) Hypomagnesemia (Acute) Acute dehydration (Acute) VITALIY (acute kidney injury) (Acute) Hypertension (Chronic) Social History Smoking/Tobacco Use Status: Never Smoking risk assessment performed?: Yes Alcohol Intake: current Alcohol Intake frequency: 3 or more drinks per day Drug use: Never Substance use type: does not use Housing: house
--- NOTE | 2022-10-18 16:37 | W.PM.PROGNOT ---
Date of Service Date of service: 10/18/22 Time of Service: 16:37 Assessment and Plan Assessment and plan (1) Alcohol withdrawal: Status: Acute Assessment and plan: Continue CIWA - scoring ~ 10; continue Lorazepam prn Avoid antipsychotics given potential to lower seizure threshold. Continue supportive care including IV fluids and thiamine supplementation. Likely has significant alcohol gastritis and continue PPI and antiemetics. No evidence of active bleeding. (2) Acute hypokalemia: Status: Acute Assessment and plan: Potassium 2.7 after 80 meq, Continue IV and oral replacement. Monitor on telemetry. (3) Hypercalcemia: Status: Resolved Assessment and plan: Calcium down to 10.5; monitor (4) Hypomagnesemia: Status: Resolved Assessment and plan: Continue IV and oral replacement. (5) VITALIY (acute kidney injury): Status: Acute Assessment and plan: Improving with IV fluids. Urine output remains good. Trend electrolytes (6) Prolonged QT interval: Status: Acute Assessment and plan: Likely due to electrolyte disturbances. Monitor on telemetry Discussed with Dr Talavera. Subjective Subjective Patient reports: tolerating a regular diet Interval history since last seen: Patient is sleeping, rec'ing ativan for CIWA ~ 10 He did have some food today and is tolerating liquids. and children in to visit Exam Narrative Exam Narrative: In general, sleeping, no acute distress HEENT significant facial erythema noted, pupils equal round and reactive to light, no conjunctival pallor or scleral icterus, oral mucosa moist with no evidence of trauma Neck supple, no lymphadenopathy or thyromegaly, carotid pulses normal and symmetric CV regular, no murmur, no gallop, no JVD Resp: Lungs clear Abdomen soft, nontender, bowel sounds normal with no masses or organomegaly Extremities no peripheral edema, distal pulses normal and symmetric Skin normal turgor Joints no active inflammatory changes Neurologic; sleeping Objective Last Vital Signs Temp 36.0 C L 10/18/22 14:59 Pulse 85 10/18/22 15:06 Resp 16 10/18/22 14:59 BP 126/79 10/18/22 14:59 Pulse Ox 97 10/18/22 14:59 Laboratory Results - last 24 hr 10/17/22 10/17/22 10/17/22 17:55 17:55 17:55 WBC 13.43 H RBC 5.56 Hgb 18.1 H Hct 51.5 H MCV 93 MCH 32.6 MCHC 35.1 RDW 11.1 L Plt Count 176 MPV 11.4 H Immature Gran % 0.7 Neutrophils % 79.8 Lymphocytes % 6.7 Monocytes % 12.3 Eosinophils % 0.1 Basophils % 0.4 Nucleated RBC % 0.0 Absolute Neutrophils 10.72 H Absolute Lymphocytes 0.90 L Absolute Monocytes 1.65 H Absolute Eosinophils 0.01 Absolute Basophils 0.05 RBC Morphology Normal PT INR VBG pH VBG pCO2 VBG pO2 VBG HCO3 VBG Total CO2 VBG O2 Saturation VBG Base Excess VBG Lactate Sodium 132 L Potassium 2.3 L* Chloride 80 L Carbon Dioxide 33.7 H Anion Gap 18.3 H BUN 44 H Creatinine 2.9 H Est GFR (CKD-EPI 2020) 25.71 Glucose 144 H Calcium 15.5 H* Phosphorus Magnesium 1.4 L Total Bilirubin 2.6 H AST 91 H ALT 70 H Alkaline Phosphatase 86 Ammonia Total Protein 9.3 H Albumin 4.6 Lipase 33 Urine Color Urine Clarity Urine pH Ur Specific [place] Urine Protein Urine Ketones Urine Blood Urine Nitrite Urine Bilirubin Urine Urobilinogen Ur Leukocyte Esterase Urine RBC Urine WBC Ur Epithelial Cells Urine Crystals Urine Bacteria Urine Casts Urine Mucus Ur Culture Indicated? Urine Glucose Salicylates < 2.8 Urine Opiates Screen Urine Methadone Screen Acetaminophen < 2 Ur Barbiturates Screen Ur Tricyclics Screen Ur Amphetamines Screen U Benzodiazepines Scrn Urine Cocaine Screen Ur THC Screen Ethyl Alcohol < 3.0 10/17/22 10/17/22 10/17/22 18:20 19:57 19:57 WBC RBC Hgb Hct MCV MCH MCHC RDW Plt Count MPV Immature Gran % Neutrophils % Lymphocytes % Monocytes % Eosinophils % Basophils % Nucleated RBC % Absolute Neutrophils Absolute Lymphocytes Absolute Monocytes Absolute Eosinophils Absolute Basophils RBC Morphology PT INR VBG pH VBG pCO2 VBG pO2 VBG HCO3 VBG Total CO2 VBG O2 Saturation VBG Base Excess VBG Lactate Sodium Potassium Chloride Carbon Dioxide Anion Gap BUN Creatinine Est GFR (CKD-EPI 2020) Glucose Calcium Phosphorus Magnesium Total Bilirubin AST ALT Alkaline Phosphatase Ammonia 39 H Total Protein Albumin Lipase Urine Color [place] Urine Clarity Clear Urine pH 5.0 Ur Specific [place] >= 1.030 H Urine Protein 100 H Urine Ketones Trace H Urine Blood Trace-intact H Urine Nitrite Positive H Urine Bilirubin Small H Urine Urobilinogen 0.2 Ur Leukocyte Esterase Negative Urine RBC 0-2 Urine WBC 0-2 Ur Epithelial Cells Rare Urine Crystals Negative Urine Bacteria Rare Urine Casts 10-20 Hyaline Urine Mucus Moderate Ur Culture Indicated? Yes Urine Glucose Negative Salicylates Urine Opiates Screen Negative Urine Methadone Screen Negative Acetaminophen Ur Barbiturates Screen Negative Ur Tricyclics Screen Negative Ur Amphetamines Screen Negative U Benzodiazepines Scrn Negative Urine Cocaine Screen Negative Ur THC Screen Negative Ethyl Alcohol 10/17/22 10/17/22 10/18/22 21:49 21:49 08:35 WBC RBC Hgb Hct MCV MCH MCHC RDW Plt Count MPV Immature Gran % Neutrophils % Lymphocytes % Monocytes % Eosinophils % Basophils % Nucleated RBC % Absolute Neutrophils Absolute Lymphocytes Absolute Monocytes Absolute Eosinophils Absolute Basophils RBC Morphology PT INR VBG pH VBG pCO2 VBG pO2 VBG HCO3 VBG Total CO2 VBG O2 Saturation VBG Base Excess VBG Lactate 1.4 Sodium 133 L 132 L Potassium 3.3 L D 2.5 L* Chloride 90 L 91 L Carbon Dioxide 40.4 H 39.4 H Anion Gap 2.6 L 1.6 L BUN 42 H 43 H Creatinine 1.8 H D 1.4 H Est GFR (CKD-EPI 2020) 45.57 61.61 Glucose 111 H 88 Calcium 12.1 H* D 10.9 H Phosphorus 2.6 Magnesium 2.3 Total Bilirubin 1.5 H AST 61 H ALT 49 Alkaline Phosphatase 62 Ammonia Total Protein 6.7 Albumin 3.3 L Lipase Urine Color Urine Clarity Urine pH Ur Specific [place] Urine Protein Urine Ketones Urine Blood Urine Nitrite Urine Bilirubin Urine Urobilinogen Ur Leukocyte Esterase Urine RBC Urine WBC Ur Epithelial Cells Urine Crystals Urine Bacteria Urine Casts Urine Mucus Ur Culture Indicated? Urine Glucose Salicylates Urine Opiates Screen Urine Methadone Screen Acetaminophen Ur Barbiturates Screen Ur Tricyclics Screen Ur Amphetamines Screen U Benzodiazepines Scrn Urine Cocaine Screen Ur THC Screen Ethyl Alcohol 10/18/22 10/18/22 10/18/22 08:35 08:35 08:35 WBC 8.97 RBC 4.06 L Hgb 13.1 L D Hct 38.2 L MCV 94 MCH 32.3 MCHC 34.3 RDW 11.3 L Plt Count 114 L MPV 11.2 H Immature Gran % 0.6 Neutrophils % 72.6 Lymphocytes % 14.2 Monocytes % 12.2 Eosinophils % 0.2 Basophils % 0.2 Nucleated RBC % 0.0 Absolute Neutrophils 6.52 Absolute Lymphocytes 1.27 Absolute Monocytes 1.09 H Absolute Eosinophils 0.02 Absolute Basophils 0.02 RBC Morphology PT 10.1 INR 1.0 VBG pH 7.50 H VBG pCO2 53 H VBG pO2 29 VBG HCO3 41 H VBG Total CO2 37 H VBG O2 Saturation 51 VBG Base Excess 18 H VBG Lactate Sodium Potassium Chloride Carbon Dioxide Anion Gap BUN Creatinine Est GFR (CKD-EPI 2020) Glucose Calcium Phosphorus Magnesium Total Bilirubin AST ALT Alkaline Phosphatase Ammonia Total Protein Albumin Lipase Urine Color Urine Clarity Urine pH Ur Specific [place] Urine Protein Urine Ketones Urine Blood Urine Nitrite Urine Bilirubin Urine Urobilinogen Ur Leukocyte Esterase Urine RBC Urine WBC Ur Epithelial Cells Urine Crystals Urine Bacteria Urine Casts Urine Mucus Ur Culture Indicated? Urine Glucose Salicylates Urine Opiates Screen Urine Methadone Screen Acetaminophen Ur Barbiturates Screen Ur Tricyclics Screen Ur Amphetamines Screen U Benzodiazepines Scrn Urine Cocaine Screen Ur THC Screen Ethyl Alcohol PAWSS Have you Been Recently Intoxicated or Drunk Within the Last 30 days?: Yes Have you Ever Experienced Previous Episodes of Alcohol Withdrawal?: No Have you ever Experienced Withdrawal Seizures?: Yes Have you ever Experienced Delirium Tremens(DT)s?: Yes Have you ever undergone Alcohol Rehabilitation Treatment (i.e, inpt ot outpatient treatment programs)?: Yes Have you ever Experienced Blackouts?: No Have you ever Combined Alcohol with other Downers within the last 90 days?: No Have you ever Combined Alcohol with any other Substance of Abuse during the last 90 days?: No Positive Blood Alcohol level on Presentation? [PCS.BAL]: No Evidence of Increased Autonomic Activity (i.e. HR>120, tremor, sweating, agitation, nausea)?: Yes Result: 5 Time Spent with Patient Time Spent with Patient: 35-49 minutes Time was spent: preparing to see the patient(eg.review tests), ordering medications,tests, procedures, referring, communicating with other health primary care coordinator, indepentently interpreting results, counseling the patient and care coordination
[2022-10-18 16:42] LABS: Anion Gap 2.7 mmol/L (3-11); BUN 38 mg/dL (7-18); CO2 36.3 mmol/L (21.0-32.0); CREATININE 1.2 mg/dL (0.70-1.30); Calcium 10.5 mg/dL (8.5-10.1); Chloride 94 mmol/L (98-107); Estimated GFR 74.13 (mL/min/1.73m2); Glucose 94 mg/dL (74-106); Magnesium 2.2 mg/dL (1.8-2.4); Sodium 133 mmol/L (136-145)
[2022-10-18 16:58] LABS: Potassium 2.9 mmol/L (3.5-5.1)
[2022-10-18] MEDS: LORazepam 1 MG TAB PO/SL (18:03)
[2022-10-18 23:04] LABS: BE (Venous) 10 mmol/L (-2-3); HCO3 (Venous) 33 mmol/L (23-28); O2 Sat (Venous) 95 %; TCO2 (Venous) 30 mmol/L (24-29); pCO2 (Venous) 43 mmHg (41-51); pH (Venous) 7.49 (7.31-7.41); pO2 (Venous) 68 mmHg
[2022-10-18 23:22] LABS: Anion Gap 3.9 mmol/L (3-11); BUN 31 mg/dL (7-18); CO2 32.1 mmol/L (21.0-32.0); CREATININE 1.1 mg/dL (0.70-1.30); Calcium 9.4 mg/dL (8.5-10.1); Chloride 97 mmol/L (98-107); Estimated GFR 82.29 (mL/min/1.73m2); Glucose 112 mg/dL (74-106); Sodium 133 mmol/L (136-145)
[2022-10-18 23:24] LABS: Potassium 2.9 mmol/L (3.5-5.1)
[2022-10-18] MEDS: POTASSIUM CHLORIDE/0.9% NACL 1,000 ML 125 MEQ IV (23:52)
[2022-10-18] MEDS: Potassium Chloride 20 MEQ TABCR PO (23:53)
[2022-10-19] MEDS: Enoxaparin 40 MG/0.4 ML SYR SC (01:06)
[2022-10-19 02:54] VITALS: BP 128/87; PULSE 79; RESP 16; TEMP 36.6; O2SAT 96
[2022-10-19] MEDS: LORazepam 1 MG TAB PO/SL (02:56)
[2022-10-19 05:22] VITALS: BP 110/64; PULSE 84; RESP 15; TEMP 36.4; O2SAT 94
[2022-10-19 06:56] VITALS: BP 120/80; PULSE 88; RESP 16; TEMP 36; O2SAT 95
[2022-10-19 07:00] VITALS: PULSE 83
[2022-10-19 07:26] LABS: Abs Immature Grans 0.09 10^3/uL (0.0-0.06); Absolute Basophil Count 0.03 10^3/uL (0.0-0.2); Absolute Lymphocyte Count 1.44 10^3/uL (1.2-3.4); Absolute Neutrophil Count 3.47 10^3/uL (1.2-6.7); Basophils % 0.5; Eosinophils % 1.7; HCT 33.2 % (40.0-50.0); HGB 11.2 g/dL (13.5-17.5); Immature Grans % 1.5; Lymphocytes % 24.7; MCH 32.4 pg (27.0-33.0); MCHC 33.7 % (32.0-36.0); MCV 96 fL (80-95); MPV 11.4 fL (8.0-11.0); Neutrophils % 59.6; RBC 3.46 10^6/uL (4.36-5.78); RDW 11.2 % (11.8-14.1); RDW-SD 39.5 fL; WBC 5.83 10^3/uL (4.4-10.8)
[2022-10-19 07:28] VITALS: BP 123/82; PULSE 83; RESP 16; TEMP 36.5; O2SAT 99
[2022-10-19 07:38] LABS: BUN 25 mg/dL (7-18); Calcium 9.1 mg/dL (8.5-10.1); Chloride 101 mmol/L (98-107); Estimated GFR 92.26 (mL/min/1.73m2); Glucose 85 mg/dL (74-106); Magnesium 1.8 mg/dL (1.8-2.4); Potassium 3.4 mmol/L (3.5-5.1); Sodium 137 mmol/L (136-145)
[2022-10-19 07:53] LABS: Diff Comment Diff Reviewed; Platelet Count 96 10^3/uL (130-400); RBC Morphology Normal
[2022-10-19] MEDS: Pantoprazole 40 MG TABCR PO (08:21)
[2022-10-19] MEDS: POTASSIUM CHLORIDE/0.9% NACL 1,000 ML 125 MEQ IV (08:21)
[2022-10-19] MEDS: Thiamine 100 MG TAB PO (08:21)
[2022-10-19] MEDS: Magnesium Oxide 400 MG TAB PO (08:22)
[2022-10-19] MEDS: POTASSIUM CHLORIDE 20 MEQ/100 ML BAG 50 MEQ IVPB (09:23)
--- NOTE | 2022-10-19 10:16 | PDOC.CMPRO ---
Date of service: 10/19/22 Time of Service: 10:16 Care Management Progress Note Progress Note Text Progress Note Text: S/O: A: ?51 year old male admitted to [facility] on 10/17/22 for ETOH withdrawal, hypokalemia P: Artur will discharge to return to his home in [place] and follow up with his own local providers once medically cleared and through withdrawal. CM continues to follow.
--- NOTE | 2022-10-19 10:25 | W.PM.DS.N ---
Date of service: 10/19/22 Time of Service: 10:26 DS: Diagnosis Discharge Diagnosis (1) Alcohol withdrawal: Status: Acute (2) Acute hypokalemia: Status: Acute (3) Hypercalcemia: Status: Resolved (4) Hypomagnesemia: Status: Resolved (5) VITALIY (acute kidney injury): Status: Acute (6) Prolonged QT interval: Status: Acute Discharge Plan Disposition Patient Disposition: Home Condition: Improving Discharge Details Reason For Visit: EtoH Withdrawal, Hypokalemia Admit Date/Time: 10/17/22 23:28 Admit Provider: Raffy Talavera Attending Provider: Raffy Talavera [facility] Hospital Course: This 51-year-old male patient that drove up to [place] from [place] with his family on 10/16 and during the ride he began not feeling well and upon [facility] the [facility] felt very shaky and unsteady and presented to the [facility] emergency department.? At that point he had a witnessed episode of generalized shaking but without loss of consciousness, incontinence, postictal state, soreness, or oral trauma, doubt seizure. No history of seizures.? Drinks several alcoholic beverages everday but reportedly has cut back significantly over the past 3 days with minimal intake over the past 48 hours.? Last heavier alcohol intake was 3 days prior to admission.? He had decreased oral intake because of constant nausea and dry heaving and although he reported occasional small-volume emesis, he denied hematemesis, melena, hematochezia.? No abdominal pain noted.?Patient was admitted to the medical floor for probable alcohol withdrawal and placed on the CIWA scale, scoring ~10 until date of discharge he was much improved with scores down to two. He was tolerating oral fluids and solids. He denied nausea. He was discharged to home with recommendation to stop drinking alcohol and seek counseling. He was given ondansetron prn and lorazepam prn. He should follow up with his PCP in [place] when he returns home. Home Meds and New Rx's Prescriptions: New ondansetron 4 mg tablet,disintegrating 4 mg PO Q6H PRNQty: 20 0RF lorazepam 1 mg tablet 1 mg PO TID PRNQty: 20 0RF Discharge Instructions Instructions: Alcohol Withdrawal (DC), Alcohol Dependence (DC) Additional Instructions: Take ondansetron as needed for nausea. Take lorazepam as needed for alcohol withdrawal symptoms. Seek alcohol counseling when you get back to [place]. Stop, decrease, alcohol consumption. Follow up with your PCP when you get back to [place]. Stand Alone Forms: Nursing Discharge Form Referrals: No,Local [Primary Care Provider] - (Please call your PCP when you get home and make a hospital discharge appointment ) Activity:: Activity as Tolerated Equipment/Supplies:: No Equipment Needed Diet:: As Tolerated Discharge Orders Discharge Orders: Discharge Order (Routine); Ordered 10/19/22 Ordered By: Marjan Driver Discharge Data Discharge Date/Time-TO BE ENTERED AT DEPARTURE: 10/19/22 11:30 DS: Summary Time Spent with Patient providing and/or coordinating discharge services: Greater than 30 minutes Status at Discharge Functional status at discharge: independent ambulation Overall status at discharge: patient is progressing back to baseline Mental Status: mental status grossly normal Speech and Movement: speech and movement normal Mood: congruent mood Affect: normal affect Exam Narrative Exam Narrative: In general, sleeping, no acute distress HEENT significant facial erythema noted, pupils equal round and reactive to light, no conjunctival pallor or scleral icterus, oral mucosa moist with no evidence of trauma Neck supple, no lymphadenopathy or thyromegaly, carotid pulses normal and symmetric CV regular, no murmur, no gallop, no JVD Resp: Lungs clear Abdomen soft, nontender, bowel sounds normal with no masses or organomegaly Extremities no peripheral edema, distal pulses normal and symmetric Skin normal turgor Joints no active inflammatory changes Neurologic; sleeping Psych Mental Status: mental status grossly normal Speech and Movement: speech and movement normal Mood: congruent mood Affect: normal affect DS: Data Vitals/I&O Vitals and I&O: Vital Signs Temperature 36.5 C 10/19/22 07:28 Temperature Source Tympanic 10/19/22 07:28 Pulse 83 10/19/22 07:28 Pulse Rhythm Regular 10/19/22 00:12 Pulse 103 H 10/17/22 21:30 Respiratory Rate 16 10/19/22 07:28 Respiratory Effort Normal, Non-Labored 10/19/22 00:12 Respiratory Depth Normal 10/19/22 00:12 Respiratory Pattern Normal 10/19/22 00:12 Blood Pressure 123/82 10/19/22 07:28 Blood Pressure Mean 81 10/17/22 20:00 Blood Pressure Position Sitting 10/17/22 17:50 Pulse Oximetry 99 10/19/22 07:28 Oxygen Delivery Method Room Air 10/19/22 07:28 Oxygen Flow Rate 0 10/19/22 07:28 Pain Level 0 10/19/22 07:28 Comment radhawa protocol 10/18/22 12:30 Intake & Output 10/18/22 10/18/22 10/19/22 11:59 23:59 11:59 Intake Total 4323.333 / 6433.333 2110 / 6433.333 1535.417 / 1535.417 Output Total 350 / 850 500 / 850 Balance 3973.333 / 5583.333 1610 / 5583.333 1535.417 / 1535.417 Weight 83.4 kg Intake: IV 3473.333 / 4773.333 1300 / 4773.333 1235.417 / 1235.417 Oral 850 / 1660 810 / 1660 300 / 300 Output: Urine 350 / 850 500 / 850 Other: Urine Color Light Doris Dark Doris Urine Appearance Clear Clear Clear Urine Odor Strong Stool Size Moderate Stool Characteristics Soft Liquid Voiding Methods Toilet Toilet Data Completed and Pending Labs on day of discharge: Labs from last 24 hours 10/19/22 10/19/22 10/18/22 06:20 06:20 22:58 WBC 5.83 RBC 3.46 L Hgb 11.2 L Hct 33.2 L MCV 96 H MCH 32.4 MCHC 33.7 RDW 11.2 L Plt Count 96 L MPV 11.4 H Immature Gran % 1.5 Neutrophils % 59.6 Lymphocytes % 24.7 Monocytes % 12.0 Eosinophils % 1.7 Basophils % 0.5 Nucleated RBC % 0.0 Absolute Neutrophils 3.47 Absolute Lymphocytes 1.44 Absolute Monocytes 0.70 Absolute Eosinophils 0.10 Absolute Basophils 0.03 RBC Morphology Normal VBG pH 7.49 H VBG pCO2 43 VBG pO2 68 VBG HCO3 33 H VBG Total CO2 30 H VBG O2 Saturation 95 VBG Base Excess 10 H Sodium 137 Potassium 3.4 L Chloride 101 Carbon Dioxide 31.0 Anion Gap 5.0 BUN 25 H Creatinine 1.0 Est GFR (CKD-EPI 2020) 92.26 Glucose 85 Calcium 9.1 Magnesium 1.8 10/18/22 10/18/22 22:58 15:02 WBC RBC Hgb Hct MCV MCH MCHC RDW Plt Count MPV Immature Gran % Neutrophils % Lymphocytes % Monocytes % Eosinophils % Basophils % Nucleated RBC % Absolute Neutrophils Absolute Lymphocytes Absolute Monocytes Absolute Eosinophils Absolute Basophils RBC Morphology VBG pH VBG pCO2 VBG pO2 VBG HCO3 VBG Total CO2 VBG O2 Saturation VBG Base Excess Sodium 133 L 133 L Potassium 2.9 L 2.9 L Chloride 97 L 94 L Carbon Dioxide 32.1 H 36.3 H Anion Gap 3.9 2.7 L BUN 31 H 38 H Creatinine 1.1 1.2 Est GFR (CKD-EPI 2020) 82.29 74.13 Glucose 112 H 94 Calcium 9.4 10.5 H Magnesium 2.2 10/17/22 19:57 Urine - Reflex from Urine Culture - Pending Preliminary micro results at discharge 10/17/22 19:57 Urine Culture - Pending Urine - Reflex from [facility] All Active Problems (Updated 10/18/22 @ 18:26 by Marjan Driver NP) Prolonged QT interval (Acute) Alcohol withdrawal (Acute) Alcohol withdrawal seizure (Acute) Acute hypokalemia (Acute) Acute dehydration (Acute) VITALIY (acute kidney injury) (Acute) Hypertension (Chronic) Social History Smoking/Tobacco Use Status: Never Smoking risk assessment performed?: Yes Alcohol Intake: current Alcohol Intake frequency: 3 or more drinks per day Drug use: Never Substance use type: does not use Housing: house Time Spent with Patient Time Spent with Patient: 45-69 minutes Time was spent: preparing to see the patient(eg.review tests), ordering medications,tests, procedures, referring, communicating with other health elderly caregiver, indepentently interpreting results, counseling the patient and care coordination
[2022-10-19 11:23] VITALS: PULSE 82
--- NOTE | 2022-10-19 12:10 | CMDISCH_ITS ---
Date of service: 10/19/22 Time of Service: 12:11 LACE Index Scoring Tool Questions: Length of Stay (in days): 2 Was the patient admitted via the E.D.?: Yes E.D. Visits: 1 Answers: Total Score: 6 Risk of Readmission: Low Risk Care Management Discharge Plan Reason for Hospitalization: ETOH withdrawal, hypokalemia Discharge Plan: Artur is discharge via private vehicle with family. He plans on traveling back to [place] and follow up with his local community providers and ETOH support services, if needed. No new services are ordered. Patient/Family Education Needs: Review discharge instructions, limitations, medications and plan to follow up with local [place] providers. Discuss ask me three.
== END 2022-10-19 11:30 | disposition home or self-care (01) | DRG 897 ==
LOC: ER 23:34 → MS 10-18 01:09
PROVIDERS: Hospitalist; Nurse Practitioner Family; Admitting Provider Internal Medicine; Emergency Provider Nurse Practitioner Family; Visit Provider Internal Medicine
DX: F10.239 Alcohol dependence with withdrawal, unspecified; N17.9 Acute kidney failure, unspecified; E87.1 Hypo-osmolality and hyponatremia; R56.9 Unspecified convulsions; E83.52 Hypercalcemia; E87.6 Hypokalemia; E83.42 Hypomagnesemia; R94.31 Abnormal electrocardiogram [ECG] [EKG]; E86.0 Dehydration
CPT/HCPCS: 36415; 80048; 80053; 80307; 82805; 83690; 93005; 96361; 96374; 96376; 99285; J1650; 70450; 80320; 80329; 81003; 81015; 82140; 83605; 83735; 84100; 85025; 85610; 87086; 93010; 99223; 99232; 99239; J2060; J3360; J3475; J3480